=== PATIENT | female | born 1985 | race Two or more races ===

== ENCOUNTER → 2016-05-30 | Outpatient (CLI) | payer OTHER | END | disposition home or self-care (01) | LOC: LAB 07:11 | DX: Z34.82 Encounter for supervision of other normal pregnancy, second trimester (principal); Z3A.00 Weeks of gestation of pregnancy not specified | CPT/HCPCS: 36415; 82951 ==

== ENCOUNTER 2016-07-19 13:58 | Inpatient (IN) | payer OTHER ==
[~2016-07-19] VITALS: Ht 157.5 cm; Wt 90.0 kg
[2016-07-19 14:09] VITALS: BP 160/98
[2016-07-19 14:37] LABS: BLOOD UREA NITROGEN 13 mg/dL (7-18)
[2016-07-19 14:40] LABS: ASPARTATE AMINO TRANSFERASE 31 U/L (15-37)
[2016-07-19] MEDS ORDERED: LABETALOL 100 MG TABLET ONE (15:19)
[2016-07-19] MEDS ORDERED: LABETALOL 100 MG TABLET PO ONE (15:30)
[2016-07-19 15:55] LABS: PATH.CAST-FLAG NOT PRESENT; SPERM-FLAG NOT PRESENT; SRC-FLAG NOT PRESENT; XTAL-FLAG NOT PRESENT; YLC-FLAG NOT PRESENT
[2016-07-19] MEDS ORDERED: OXYTOCIN 30U/ 0.9% NaCL 500ML 500 ML IV ONE (17:25)
[2016-07-19] MEDS: D5%-LACTATED RINGERS 1,000 ML IV SCH (17:25)
[2016-07-19] MEDS ORDERED: OXYTOCIN 30U/ 0.9% NaCL 500ML 500 ML IV PRN (17:25)
[2016-07-19] MEDS ORDERED: FENTANYL PF 100 MCG/2ML IV PRN (17:30)
[2016-07-19] MEDS ORDERED: ONDANSETRON 2MG/ML, 2ML IVPush PRN (17:30)
[2016-07-19] MEDS ORDERED: SODIUM CITRATE/CITRIC ACID 30 ML UDC PO PRN (17:30)
[2016-07-19] MEDS ORDERED: FENTANYL PF 100 MCG/2ML IVPush PRN (17:30)
[2016-07-19] MEDS ORDERED: TERBUTALINE 1 MG/ML, 1ML SQ PRN (17:30)
[2016-07-19] MEDS ORDERED: METOCLOPRAMIDE 5 MG/ML, 2ML IVPush PRN (17:30)
[2016-07-19] MEDS ORDERED: LIDOCAINE 1%, 20ML ONE (17:31)
[2016-07-19] MEDS ORDERED: MISOPROSTOL 200 MCG TABLET ONE (17:31)
[2016-07-19] MEDS ORDERED: BETAMETHASONE 6 MG/ML, 5ML IM ONE (17:31)
[2016-07-19] MEDS ORDERED: OXYTOCIN 30U/ 0.9% NaCL 500ML 500 ML ONE (17:32)
[2016-07-19] MEDS ORDERED: NEWBORN KIT ONE (17:32)
[2016-07-19] MEDS: LACTATED RINGERS 1,000 ML IV SCH (17:48)
[2016-07-19] MEDS: BETAMETHASONE 6 MG/ML, 5ML IM SCH (17:54)
[2016-07-19] MEDS ORDERED: AMPICILLIN 2 GM in SODIUM CHLORIDE 0.9% 100 ML IVPB STA (18:00)
[2016-07-19] MEDS ORDERED: PREN1TAB69 PO (18:13)
[2016-07-19] MEDS ORDERED: LABETALOL 5MG/ML, 20ML ONE (18:56)
[2016-07-19] MEDS: LABETALOL 5MG/ML, 20ML IVPush PRN ×2 (19:05→21:05)
[2016-07-19] MEDS ORDERED: MAGNESIUM SULF. PMX 20GM/500ML 500 ML IV ONE (21:14)
[2016-07-19] MEDS ORDERED: MAGNESIUM SULFATE PMX 4GM/100M 100 ML IV ONE (21:30)
[2016-07-19] MEDS: MAGNESIUM SULF. PMX 20GM/500ML 500 ML IV PRN ×2 (21:32→22:18)
[2016-07-19] MEDS: AMPICILLIN 1 GM in SODIUM CHLORIDE 0.9% 50 ML IVPB SCH (21:33)
[2016-07-20] MEDS: LABETALOL 5MG/ML, 20ML IVPush PRN (00:55)
[2016-07-20] MEDS: LACTATED RINGERS 1,000 ML IV SCH ×4 (00:58→10:08)
[2016-07-20] MEDS ORDERED: FENTANYL PF 100 MCG/2ML ONE (01:06)
[2016-07-20] MEDS: D5%-LACTATED RINGERS 1,000 ML IV SCH ×2 (01:25→09:25)
[2016-07-20] MEDS ORDERED: FENTANYL/BUPIV./NS/PF 250 ML EPIDCONT ONE (01:35)
[2016-07-20] MEDS: AMPICILLIN 1 GM in SODIUM CHLORIDE 0.9% 50 ML IVPB SCH ×3 (02:00→10:00)
[2016-07-20] MEDS ORDERED: FENTANYL/BUPIV./NS/PF 250 ML EPIDCONT SCH (02:08)
[2016-07-20] MEDS ORDERED: EPHEDRINE 50 MG/ML, 1ML IVPush PRN (02:30)
[2016-07-20] MEDS ORDERED: LACTATED RINGERS 1,000 ML IVBOLUS PRN (02:30)
[2016-07-20] MEDS ORDERED: NALOXONE 0.4 MG/ML, 1ML IVPush PRN (02:30)
[2016-07-20] MEDS ORDERED: MISOPROSTOL 200 MCG TABLET PR PRN (03:00)
[2016-07-20] MEDS ORDERED: ACETAMINOPHEN 325 MG TABLET PO PRN ×3 (03:00)
[2016-07-20] MEDS ORDERED: DOCUSATE 100 MG CAPSULE PO PRN (03:00)
[2016-07-20] MEDS ORDERED: ONDANSETRON 2MG/ML, 2ML IV PRN (03:00)
[2016-07-20] MEDS ORDERED: HYDROcodone/APAP 5/325 TABLET PO PRN ×2 (03:00)
[2016-07-20] MEDS ORDERED: OXYTOCIN 30U/ 0.9% NaCL 500ML 500 ML ONE (03:23)
[2016-07-20] MEDS: OXYTOCIN 30U/ 0.9% NaCL 500ML 500 ML IV SCH ×3 (03:25→22:52)
[2016-07-20] MEDS ORDERED: EPHEDRINE 50 MG/ML, 1ML ONE (03:45)
[2016-07-20] MEDS ORDERED: OXYcodone/APAP 5/325MG TABLET ONE (05:59)
[2016-07-20] MEDS ORDERED: IBUPROFEN 600 MG TABLET ONE (05:59)
[2016-07-20] MEDS ORDERED: MAGNESIUM SULF. PMX 20GM/500ML 500 ML IV ONE ×2 (06:57→20:15)
[2016-07-20] MEDS ORDERED: OXYcodone/APAP 5/325MG TABLET PO ONE (07:30)
[2016-07-20] MEDS ORDERED: IBUPROFEN 200 MG TABLET PO PRN (07:30)
[2016-07-20] MEDS ORDERED: HYDROcodone/APAP 5/325 TABLET ONE ×2 (08:14→20:16)
[2016-07-20 08:30] VITALS: BP 127/67
[2016-07-20 08:33] LABS: ASPARTATE AMINO TRANSFERASE 27 U/L (15-37); BLOOD UREA NITROGEN 12 mg/dL (7-18)
[2016-07-20] MEDS: BETAMETHASONE 6 MG/ML, 5ML IM SCH (17:30)
[2016-07-20 20:30] VITALS: BP 133/75
[2016-07-20] MEDS ORDERED: MAGNESIUM SULF. PMX 20GM/500ML 500 ML IV PRN (21:30)
[2016-07-21 04:25] VITALS: BP 125/81
[2016-07-21] MEDS: PRENATAL VIT/IRON/FA 1 EACH TABLET PO SCH ×2 (09:00→09:53)
[2016-07-21] MEDS ORDERED: DIPH,PERTUSS(ACELL),TET VAC/PF NC IM-VACC ONE ×2 (12:24→12:30)
[2016-07-21 12:30] VITALS: BP 140/78
[2016-07-21 16:00] VITALS: BP 153/82
[2016-07-21 16:50] VITALS: BP_SYST 136; BP_SYST 155; BP_DIAS 76; BP_DIAS 92
[2016-07-21] MEDS ORDERED: IBUP-1222 PO (17:59)
[2016-07-21] MEDS ORDERED: LABE100T3 PO (18:00)
[2016-07-21] MEDS ORDERED: DOCU-30 PO (18:00)
[2016-07-21] MEDS ORDERED: HYDR-3240 PO (18:00)
== END 2016-07-21 18:45 | disposition home or self-care (01) | DRG 775 ==
LOC: LDOP 13:58 → LDIP 16:39 → OBSVTOIN 17:25 → 2NW 07-20 05:07 → 2NE 07-20 05:14 → 2NW 07-21 04:00
PROVIDERS: ADMIT Obstetrics & Gynecology; ATTEND Obstetrics & Gynecology
PROC: 10E0XZZ Delivery of Products of Conception, External Approach (ICD-10-PCS; principal; 2016-07-20)
PROC: 3E033VJ Introduction of Other Hormone into Peripheral Vein, Percutaneous Approach (ICD-10-PCS; 2016-07-20)
PROC: 00HU33Z Insertion of Infusion Device into Spinal Canal, Percutaneous Approach (ICD-10-PCS; 2016-07-20)
PROC: 3E0R3CZ (ICD-10-PCS; 2016-07-20)
DX: O14.14 Severe pre-eclampsia complicating childbirth (principal); Z37.0 Single live birth; O36.5930 Maternal care for other known or suspected poor fetal growth, third trimester, not applicable or unspecified; O76 Abnormality in fetal heart rate and rhythm complicating labor and delivery; Z3A.36 36 weeks gestation of pregnancy; O60.14X0 Preterm labor third trimester with preterm delivery third trimester, not applicable or unspecified; Z23 Encounter for immunization
CPT/HCPCS: 36415; 80053; 81001; 82248; 82570; 82803; 83735; 84156; 84550; 85025; 86850; 86900; 90715; J0290; J0702; J3010; G0378; J2590; J3475; J7120